=== PATIENT | male | born 1945 | race Hispanic/Latino ===

== ENCOUNTER → 2017-09-11 | Outpatient (CLI) | payer OTHER ==
[~2017-09-11] MED LIST: AMLO10TA2 PO; ASPI-555 PO; ATOR40TA71 PO; ISOS20TA7 PO; LOSA100T29 PO; METF500T6 PO; METO-408 PO; NAPR-1023 PO; NITR0.4T SL
== END ==
LOC: OIH 13:44
PROVIDERS: ATTEND Internal Medicine Cardiovascular Disease
DX: Z13.6 Encounter for screening for cardiovascular disorders (principal)
CPT/HCPCS: 75571

== ENCOUNTER 2017-09-28 07:45 | Observation (INO) | payer MEDICARE ==
[2017-09-27 14:02] VITALS: BP 135/56
[2017-09-27 14:14] LABS: EOSINOPHILS % (AUTO) 3.4 % (0.0-8.0); HEMATOCRIT 28.4 % (42-54); LYMPHOCYTES % (AUTO) 20.7 % (21.0-51.0); MEAN CORPUSCULAR HEMOGLOBIN 26.4 pg (27.0-33.0); MEAN CORPUSCULAR HGB CONC 32.5 g/dL (32.0-36.0); MEAN CORPUSCULAR VOLUME 81.4 fL (79-99); MONOCYTES % (AUTO) 9.1 % (3.0-13.0); NEUTROPHILS % (AUTO) 65.8 % (40.0-77.0); PLATELET COUNT (AUTO) 214 K/uL (130-400); RED BLOOD CELL COUNT(AUTO) 3.49 MIL/uL (4.50-6.20); RED CELL DISTRIBUTION WIDTH 15.6 % (11.0-15.5); WHITE BLOOD COUNT (AUTO) 6.8 K/uL (4.8-10.8)
[2017-09-27 14:16] LABS: APPEARANCE,URINE Clear (CLEAR); BILIRUBIN,URINE Negative (NEGATIVE); COLOR,URINE Yellow (YELLOW); GLUCOSE, URINE (UA) Negative (NEGATIVE); KETONES,URINE Negative (NEGATIVE); LEUKOCYTE ESTERASE ,URINE Negative (NEGATIVE); NITRATE,URINE Negative (NEGATIVE); OCCULT BLOOD,URINE Negative (NEGATIVE); PROTEIN,URINE Negative (NEGATIVE); UROBILINOGEN,URINE 0.2 mg/dL (0.2-1.0)
[2017-09-27 14:27] LABS: CREATININE 1.4 mg/dL (0.5-1.5); POTASSIUM 4.9 mmol/L (3.5-5.1)
[2017-09-27 14:38] LABS: INR 0.96 (0.85-1.15); PARTIAL THROMBOPLASTIN TIME 26.2 SEC (26.3-35.5); PROTHROMBIN TIME 9.9 SEC (9.6-11.6)
[2017-09-28] VITALS (12 sets, daily range): BP systolic 116–144; BP diastolic 54–74
[~2017-09-28] VITALS: Ht 177.8 cm; Wt 82.1 kg
[~2017-09-28 07:45] MED LIST changes: +SODIUM CHLORIDE 0.9% 500ML 500 ML IV SCH
[2017-09-28] MEDS ORDERED: SODIUM CHLORIDE 0.9% 1000ML 1,000 ML IV ONE (08:45)
[2017-09-28] MEDS ORDERED: HEPARIN SODIUM 1000UNIT/ML 10ML VIAL ONE (10:21)
[2017-09-28] MEDS ORDERED: LIDOCAINE HCL 2% 20ML ONE (10:22)
[2017-09-28] MEDS ORDERED: IOPAMIDOL-370 100 ML VIAL IV ONE (10:22)
[2017-09-28] MEDS ORDERED: ISOVUE-370 50ML VIAL IV ONE (10:22)
[2017-09-28] MEDS ORDERED: DEXTROSE 50%-WATER 50 ML DISP.SYRIN IV PRN (11:15)
[2017-09-28] MEDS ORDERED: NITROGLYCERIN 0.4 MG SL TAB SL PRN (11:15)
[2017-09-28] MEDS ORDERED: NAPROXEN 500 MG TABLET PO PRN (11:15)
[2017-09-28] MEDS ORDERED: GLUCAGON 1MG KIT 1 MG ML IM PRN (11:15)
[2017-09-28] MEDS: SODIUM CHLORIDE 0.9% 10 ML VIAL IVP SCH ×2 (11:15→19:15)
[2017-09-28] MEDS: INSULIN HUMULIN R 100 UNIT/ML 3ML SQ SCH ×2 (16:30→21:10)
[2017-09-28] MEDS ORDERED: WATER FOR INJECTION,STERILE 20 ML VIAL IJ SCH (17:45)
[2017-09-28] MEDS ORDERED: CEFUROXIME SODIUM 1.5 GM VIAL IVP SCH (17:45)
[2017-09-28] MEDS ORDERED: ATORVASTATIN CALCIUM 40 MG TABLET PO SCH (21:00)
[2017-09-28] MEDS: METOPROLOL TARTRATE 25 MG TAB PO SCH (21:09)
[2017-09-29 03:07] VITALS: BP 120/51
[2017-09-29] MEDS: INSULIN HUMULIN R 100 UNIT/ML 3ML SQ SCH ×2 (05:24→12:07)
[2017-09-29] MEDS ORDERED: CEFUROXIME 1.5GM+NS 100ML 100 ML IV SCH (07:00)
[2017-09-29 08:00] VITALS: BP 140/54
[2017-09-29] MEDS ORDERED: LOSARTAN 100 MG TABLET PO SCH (09:00)
[2017-09-29] MEDS ORDERED: FAMOTIDINE 20MG TAB 20 MG TAB PO SCH (09:00)
[2017-09-29] MEDS ORDERED: AMLODIPINE BESYLATE 5 MG TAB PO SCH (09:00)
[2017-09-29] MEDS ORDERED: ASPIRIN 81 MG EC TAB PO SCH (09:00)
[2017-09-29] MEDS ORDERED: ISOSORBIDE MONONITRATE 20 MG TABLET PO SCH (09:00)
[2017-09-29] MEDS: METOPROLOL TARTRATE 25 MG TAB PO SCH (09:03)
[2017-09-29 11:24] VITALS: BP 109/52
== END 2017-09-29 12:15 | disposition home or self-care (01) ==
LOC: DAH 07:45 → INTOOBSV 07:46 → 2DH 07:46
PROVIDERS: ADMIT Internal Medicine; ATTEND Internal Medicine
DX: I25.119 Atherosclerotic heart disease of native coronary artery with unspecified angina pectoris (principal); E11.9 Type 2 diabetes mellitus without complications; I11.9 Hypertensive heart disease without heart failure; E78.5 Hyperlipidemia, unspecified; I34.0 Nonrheumatic mitral (valve) insufficiency; Z87.891 Personal history of nicotine dependence; Z95.1 Presence of aortocoronary bypass graft
CPT/HCPCS: 36415; 71045; 80048; 81003; 82948 ×6; 85025; 85610; 85730; 93005; 93458; 96372 ×2; A4606; C1894; G0378 ×28; J1644; J3490; J7030; Q9967 ×2; J0697